=== PATIENT | female | born 1985 | race Caucasian/White ===

== ENCOUNTER 2019-10-25 21:32 | Emergency (ER) | payer SELFPAY ==
[~2019-10-25] VITALS: Ht 165.1 cm; Wt 97.4 kg
--- NOTE | 2019-10-25 22:09 | NUR ---
Pt amb to room from lobby at this time, w/ steady gait.
--- NOTE | 2019-10-25 22:15 | NUR ---
PATIENT STATES LEFT EAR PAIN FOR 3 DAYS. PATIENT STATES THIS IS A CHRONIC ISSUE SHE HAS HAD SINCE CHILDHOOD, STATES ONLY SURGERY IS ON HER TUBES IN HER EARS. STATES NO OTHER ISSUES, PLACED IN ROOM WITH FAMILY.
[2019-10-25] MEDS ORDERED: HYDROcodone/APAP 5/325 TABLET PO ONE (22:30)
[2019-10-25] MEDS ORDERED: HYDROcodone/APAP 5/325 TABLET ONE (23:20)
--- NOTE | 2019-10-25 23:23 | NUR ---
PAIN MEDICATION GIVEN PER EMAR. WILL RECHECK IN 30 MIN THEN D/C
[2019-10-25 23:52] VITALS: BP 134/73
== END 2019-10-26 00:04 | disposition home or self-care (01) ==
LOC: ED 22:52
DX: H66.002 Acute suppurative otitis media without spontaneous rupture of ear drum, left ear (principal); H60.312 Diffuse otitis externa, left ear; H60.12 Cellulitis of left external ear
CPT/HCPCS: 99283